=== PATIENT | female | born 1985 | race Caucasian/White ===

== ENCOUNTER 2022-03-17 23:51 | Emergency (ER) | payer MEDICAID ==
[~2022-03-17] VITALS: Ht 167.6 cm; Wt 61.4 kg
[2022-03-17 23:52] VITALS: BP 135/79
== END 2022-03-18 00:17 ==
LOC: ER 23:51
DX: Z00.8 Encounter for other general examination (principal)
CPT/HCPCS: 99283